=== PATIENT | male | born 1960 | race Caucasian/White ===

== ENCOUNTER 2025-03-06 15:19 | Emergency (ER) | payer MEDICAID, SELFPAY ==
[2025-03-06 15:20] VITALS: BMI 18.6
[2025-03-06 15:27] VITALS: BP 113/75; PULSE 91; RESP 18; TEMP 36.7; O2SAT 95
[2025-03-06] MEDS: LIDOCAINE HCL 1% 20 ML VIAL INFL (15:46)
[2025-03-06] MEDS: DIPHTH,PERTUSS(ACELL),TET VAC 0.5 ML SYR- ADULT IMi (15:46)
--- NOTE | 2025-03-06 15:58 | EDNOTE_ITS ---
ED Wound/Laceration-RME/HPI General Chief Complaint: Wound/Laceration Stated Complaint: LAC R) 4TH FINGER Time Seen by Provider: 03/06/25 15:24 Source: patient Arrival date/time: 03/06/25 15:19 64-year-old male with a history of hypertension, cancer, cecal volvulus, presents to the emergency room with a chief complaint of a laceration to his right hand fourth finger. Patient states he was washing dishes and got cut by glass. Mode of arrival: ambulatory Limitations: no limitations Related Data Home Medications ?Medication ?Instructions ?Recorded ?Confirmed hydrochlorothiazide 25 mg tablet 25 mg PO QDAY 0 04/14/20 hydrocodone 5 mg-acetaminophen 325 1 tab PO Q8H PRN Pa in 04/14/20 04/14/20 mg tablet ([place]) lisinopril 20 mg tablet 20 mg PO QDAY 04/14/2004/14 Previous Rx's ?Medication ?Instructions ?Recorded hydrocodone 5 mg-acetaminophen 325 1 tab PO Q6H PRN pa in4 #20 tabs 04/26/20 mg tablet ([place]) vancomycin 125 mg capsule 125 mg PO QID #30 caps 04/26 Allergies Allergy/AdvReac Type Severity Reaction Status Date / Time No Known Allergies Allergy Verified 03/06/25 15:22 Review of Systems Review of Systems Systems Reviewed: All systems reviewed, normal except as documented Constitutional Constitutional: Reports system reviewed and no additional complaints, except as documented, Denies fatigue, Denies fever(s), Denies headache(s) and Denies weakness Eyes Eyes: Reports system reviewed and no additional complaints, except as documented, Denies blurry vision and Denies change in vision ENT Ears, Nose, Mouth, and Throat: Reports system reviewed and no additional complaints, except as documented, Denies otalgia, Denies headache(s), Denies nasal congestion, Denies throat swelling and Denies vertigo Cardiovascular Cardiovascular: Reports system reviewed and no additional complaints, except as documented, Denies chest pain, Denies dyspnea and Denies dyspnea on exertion Respiratory Respiratory: Reports system reviewed and no additional complaints, except as documented, Denies chest congestion, Denies cough, Denies dyspnea, Denies dyspnea on exertion and Denies wheezing Gastrointestinal Gastrointestinal: Reports system reviewed and no additional complaints, except as documented, Denies abdominal pain, Denies cramping, Denies nausea and Denies vomiting Genitourinary Genitourinary: Reports system reviewed and no additional complaints, except as documented, Denies dysuria and Denies hematuria Musculoskeletal Musculoskeletal: Reports system reviewed and no additional complaints, except as documented and Denies back pain Integumentary/Breasts Skin/Breast: Reports system reviewed and no additional complaints, except as documented and Denies wounds Neurologic Neurologic: Reports system reviewed and no additional complaints, except as documented, Denies confusion, Denies headache(s), Denies lack of coordination, Denies vertigo and Denies weakness Psychiatric Psychiatric: Reports system reviewed and no additional complaints, except as documented, Denies anxiety, Denies confusion, Denies depression, Denies paranoia, Denies suicidal ideation and Denies tactile hallucinations Endocrine Endocrine: Reports system reviewed and no additional complaints, except as documented and Denies fatigue Hematologic/Lymphatic Hematologic/Lymphatic: Reports system reviewed and no additional complaints, except as documented and Denies lymphadenopathy Allergic/Immunologic Allergic/Immunologic: Reports system reviewed and no additional complaints, except as documented, Denies throat swelling, Denies urticaria and Denies wheezing ED Exam General Limitations: Present no limitations General appearance: Present alert and in no apparent distress Head Head exam: Present atraumatic Eye Eye exam: Present normal appearance, PERRL and EOMI ENT ENT exam: Present normal exam, normal oropharynx and mucous membranes moist Neck Neck exam: Present normal inspection, full ROM and trachea midline Chest Chest inspection: Present normal inspection and symmetric chest wall rise Respiratory Respiratory exam: Present normal lung sounds bilaterally Cardiovascular Cardiovascular exam: Present regular rate, normal rhythm and normal heart sounds Abdominal Exam Abdominal exam: Present soft and normal bowel sounds Extremities Exam Extremities exam: Present normal inspection and full ROM Expanded Upper Extremity Exam Shoulder exam: Present normal inspection Arm exam: Present normal inspection Elbow exam: Present normal inspection Forearm/Wrist exam: Present normal inspection Hand L/R front image: 2 1. laceration (2 cm laceration) Back Exam Back exam: Present normal inspection and full ROM Neurological Exam Neurological exam: Present alert, oriented X3 and CN II-XII intact Psychiatric Psychiatric exam: Present normal affect and normal mood Skin Skin exam: Present warm, dry, intact and normal color Course Quality Measures none Orders Category Date Time Status Set Up Suture Tray STAT Care 03/06/25 15:35 Active Wound Care NOW Care 03/06/25 15:35 Active Lidocaine 1% 20 ml [Xylocaine 1% 20 ML] Med 03/06/25 15:35 Discontinued 20 ml INFL X1 ONE TET,DIP/PERT AC (Adult)-Tdap [Boostrix Adult (Tdap) Med 03/06/25 15:35 Discontinued Vacc] 0.5 ml IMI .ONCE ONE Vital Signs Vital signs: Vital Signs Temperature 98.0 F 03/06/25 15:27 Pulse Rate 91 03/06/25 15:27 Respiratory Rate 18 03/06/25 15:27 Blood Pressure 113/75 03/06/25 15:27 Pulse Oximetry (%) 95 03/06/25 15:27 Oxygen Delivery Method Room Air 03/06/25 15:27 PROCEDURES: Laceration Laceration 1: Site: hand Side (If applicable): left Size (cm): 2 Description: linear and flap Depth: simple, single layer Local Anesthetic: lidocaine 1% Amount of anesthesia used (mL): 4 Pre-repair: wound explored and irrigated extensively Skin layer closed with: nylon Suture size (cm): 4-0 Number of sutures: 6 Technique: simple, interrupted Wound / Laceration MDM Narrative MDM Narrative:: 64-year-old male with a history of hypertension, cancer, cecal volvulus, presents to the emergency room with a chief complaint of a laceration to his right hand fourth finger. Patient states he was washing dishes and got cut by glass. Patient is hemodynamically stable and in no apparent distress The laceration occured 1 hour ago The mechanism of injury occurred while the patient was washing dishes and was cut by glass Sensation is intact. There is full ROM. There is no exposed tendons. No foreign bodies. Lidocaine 1% was used for anesthesia. The wound was irrigated extensively with normal saline. 6 sutures were placed. A dressing was placed. There were no complications. Patient was educated to keep the area clean and dry for 24 hours, then clean daily with soap and water. Patient was educated to return for any signs of infection including swelling pain redness pus or fever and to make an appointment with primary care provider in 48 hours. Patient was educated to follow up with primary or return to emergency room for suture removal in the next 7-10 days. Patient data External records reviewed:: [facility] previous records Clinical information provided by:: patient Social determinants that could affect healthcare access:: none Patient has the following chronic illnesses:: Hypertension How is presenting disease/condition affected by chronic disease/condition?: u neffected by Evaluation data The following diagnostics were reviewed and interpreted by me:: lab results and radiology exam(s) Lab and/or radiology exams considered but not ordered:: Labs and radiology exams considered and ordered Interpretation Summary: N/A Medications / Prescriptions Medications or Prescriptions considered but not ordered:: Medication given Medication administrations:: Medication Administration History Discontinued Medications Diphtheria/Tetanus/Acell Pertussis (Diphth,Pertuss(Acell),Tet Vac 0.5 Ml Syr- Adult) 0.5 ml IMi .ONCE ONE Stop: 03/06/25 15:36 Last Admin: 03/06/25 15:46 Dose: 0.5 ml Documented By: DILSHAD Lidocaine HCl (Lidocaine Hcl 1% 20 Ml Vial) 20 ml INFL X1 ONE Stop: 03/06/25 15:36 Last Admin: 03/06/25 15:46 Dose: 20 ml Documented By: DILSHAD Medication given Consultations Consultation(s) initiated? (list below): No Diagnosis Wound Differential Diagnosis: laceration, abscess and abrasion Most likely diagnosis given after review of the tests above:: Laceration Admission Indicated Admission indicated?: not indicated Admission Request Was there a request for admission?: No Disposition Plan Disposition Plan: Discharge Discharge Attestation Discharge Attestation: The patient and all family members were given an opportunity to ask questions and understood the discharge instructions. Discharge instructions specifically effects, indications for sooner follow up or return to the emergency department, and the expected course of current diagnosis. Patient condition: Stable Discharge Plan Plan Patient Disposition: HOME (Self Care) Discharge Disposition comment: Stable Prescriptions/Referrals Prescriptions/Med Rec: No Action lisinopril 20 mg tablet 20 mg PO QDAY hydrochlorothiazide 25 mg tablet 25 mg PO QDAY hydrocodone-acetaminophen [[place]] 5-325 mg tablet 1 tab PO Q8H MDD 4 PRN (Reason: Pain) vancomycin 125 mg capsule 125 mg PO QID Qty: 30 0RF hydrocodone-acetaminophen [[place]] 5-325 mg tablet 1 tab PO Q6H MDD 4 PRN (Reason: pain4) Qty: 20 0RF Problem List Clinical Impression: Laceration Patient/Caregiver Discharge Instructions Additional Instructions: Please follow-up with your primary care provider in the next 24 to 48 hours Please keep the area clean and dry for the next 24 hours after you clean it with soap and water You can return in 7 to 10 days for suture removal or follow-up with your primary care provider. For any evidence of worsening signs or symptoms return to the emergency room immediately Print Language: Amharic Stand Alone Forms: Shanel Award Info., Patient Portal Info Letter PA/TITLE DEPARTMENT MANAGER Supervising Physician PA/TITLE DEPARTMENT MANAGER Supervising Physician: Dr. Appiah
== END 2025-03-06 16:06 | disposition home or self-care (01) ==
LOC: SERX 16:03
PROVIDERS: Emergency Provider Family Medicine
DX: S61.214A Laceration without foreign body of right ring finger without damage to nail, initial encounter (principal); W25.XXXA Contact with sharp glass, initial encounter; Z23 Encounter for immunization
CPT/HCPCS: 12002; 90471; 90715; 99284; J3490

== ENCOUNTER 2025-05-13 11:35 | Emergency (ER) | payer MEDICARE, MEDICAID, SELFPAY ==
[2025-05-13 11:43] VITALS: BP 155/88; PULSE 73; RESP 16; TEMP 36.8; O2SAT 97; BMI 18.6
--- NOTE | 2025-05-13 11:52 | PD.EDRME ---
Rapid Medical Screening Exam E Arrival date/time: 05/13/25 11:35 64-year-old male with a history of hypertension was sent to the emergency room by his primary care provider for a new diagnosis of left ear carcinoma. Patient states he is here for resources as he is not sure who he has to see for his new diagnosis I have greeted and performed a focused initial assessment of this patient. A comprehensive ED assessment and evaluation of the patient, analysis of all test results, and completion of the medical decision making process will be conducted by additional ED providers. Chief Complaint: Ear Vital signs: Vital Signs Temperature 98.2 F 05/13/25 11:43 Pulse Rate 73 05/13/25 11:43 Respiratory Rate 16 05/13/25 11:43 Blood Pressure 155/88 H 05/13/25 11:43 Pulse Oximetry (%) 97 05/13/25 11:43 Oxygen Delivery Method Room Air 05/13/25 11:43 Vital signs reviewed by provider: Yes
[2025-05-13 12:27] LABS: Basophils # (Auto) 0.1 Thou/mm3 (0.0-0.2); Basophils % (Auto) 1 % (0-2.5); Eosinophils # (Auto) 0.1 Thou/mm3 (0.0-0.5); Eosinophils % (Auto) 1 % (0-10); Hematocrit 39.2 % (41.0-53.0); Hemoglobin 13.6 g/dL (13.5-16.0); Immature Granulocytes Auto 0.03 Thou/mm3 (0.00-0.00); Lymphocytes # (Auto) 1.5 Thou/mm3 (1.0-4.8); Lymphocytes % (Auto) 17 % (10-50); Mean Corpuscular HGB Conc 34.7 g/dl (31.0-37.0); Mean Corpuscular Hemoglobin 34.2 pg (25.0-35.0); Mean Corpuscular Volume 99 fL (80-100); Monocytes # (Auto) 1.1 Thou/mm3 (0.0-0.8); Monocytes % (Auto) 12 % (0-12); Neutrophils # (Auto) 5.8 Thou/mm3 (1.8-7.7); Neutrophils % (Auto) 68 % (37-80); Nucleated Red Blood Cell # 0.00 Thou/mm3 (0.00-0.00); Nucleated Red Blood Cell % 0 /100 WBC (0); Platelet Count 243 Thou/mm3 (140-440); RDW Standard Deviation 52.0 fL (35.1-43.9); Red Blood Count 3.98 Miln/mm3 (4.50-5.90); White Blood Count 8.5 Thou/mm3 (3.8-10.6)
[2025-05-13 12:46] LABS: Alanine Aminotransferase 24 U/L (10-49); Albumin, Serum 4.7 gm/dL (3.4-4.8); Albumin/Globulin Ratio 1.5 (1.2-2.2); Alkaline Phosphatase 75 U/L (46-116); Anion Gap 10 (7-16); Aspartate Amino Transferase 50 U/L (0-34); BUN/Creatinine Ratio 7 Ratio (12-20); Bilirubin,Total 0.4 mg/dL (0.3-1.2); Blood Urea Nitrogen 7 mg/dL (9-23); Calcium 9.8 mg/dL (8.3-10.6); Calcium (Corrected) 9.8 mg/dL (8.5-10.1); Carbon Dioxide 26.7 mMol/L (20.0-31.0); Chloride 98 mMol/L (98-107); Creatinine (Component) 1.0 mg/dL (0.6-1.3); Estimated Creatinine Clearance 61.4 mL/min (>60); Globulin 3.2 gm/dL (2.3-3.5); Glucose 95 mg/dL (74-106); Osmolality,Calculated 268 (275-295); Potassium 3.8 mMol/L (3.4-5.1); Sodium 135 mMol/L (136-145); Total Protein 7.9 gm/dL (5.7-8.2); eGFR > 60 See Note
[2025-05-13 12:54] VITALS: BP 163/94; PULSE 64; RESP 16; O2SAT 98
--- NOTE | 2025-05-13 12:58 | PC.NURSE ---
PT HERE WITH C/O OPEN/NO-HEALING WOUND TO LEFT EAR. SHOWS NURSE BIOPSY RESULTS SAYING WOUND IS CANCER. PT STATES IT WON'T HEAL AND I CAN'T GET IN TO SEE A DOCTOR.
[2025-05-13 13:35] VITALS: BP 140/94; PULSE 64; RESP 16; TEMP 36.7; O2SAT 98
--- NOTE | 2025-05-13 13:46 | EDNOTE_ITS ---
ED Ear RME/HPI General Chief complaint: Ear Stated complaint: PAIN/ULCER IN L) EAR Time Seen by Provider: 05/13/25 13:17 Arrival date/time: 05/13/25 11:35 Limitations: no limitations RME / HPI RME / HPI Narrative: 05/13/25 11:35 64-year-old male with a history of hypertension was sent to the emergency room by his primary care provider for a new diagnosis of left ear carcinoma. Patient states he is here for resources as he is not sure who he has to see for his new diagnosis I have greeted and performed a focused initial assessment of this patient. A comprehensive ED assessment and evaluation of the patient, analysis of all test results, and completion of the medical decision making process will be conducted by additional ED providers. DR. 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 States he was referred to the [facility] where he was evaluated today. States he has yet to see or consult with plastic surgeon. No other complaints reported. Related Data Home Medications ?Medication ?Instructions ?Recorded ?Confirmed hydrochlorothiazide 25 mg tablet 25 mg PO QDAY 0 04/14/20 hydrocodone 5 mg-acetaminophen 325 1 tab PO Q8H PRN Pa in 04/14/20 04/14/20 mg tablet ([place]) lisinopril 20 mg tablet 20 mg PO QDAY 04/14/2004/14 Previous Rx's ?Medication ?Instructions ?Recorded hydrocodone 5 mg-acetaminophen 325 1 tab PO Q6H PRN pa in4 #20 tabs 04/26/20 mg tablet ([place]) vancomycin 125 mg capsule 125 mg PO QID #30 caps 04/26 cephalexin 500 mg capsule 500 mg PO Q6H 7 days #28 cap s 05/13/25 Allergies Allergy/AdvReac Type Severity Reaction Status Date / Time No Known Allergies Allergy Verified 05/13/25 11:39 Review of Systems Review of Systems Systems Reviewed: All systems reviewed, normal except as documented Past Medical History Past Medical History NEUROLOGIC: Positive Neurological Disorders and Head Trauma CARDIAC: Positive Hypertension GASTROINTESTINAL: Positive Gastrointestinal Disorders and Hemorrhoids MUSCULOSKELETAL: Positive Musculoskeletal Disorders, Arthritis and Fractures ENT: Positive Head Trauma PSYCHO/SOCIAL: Positive Anxiety OTHER HISTORY: Positive Chemotherapy, Radiation Therapy, Chicken Pox and Cancer (SKIN/JAW LWFT SIDE FACE, LEFT EAR) Family History FAMILY HISTORY: Positive Family Psychiatric Problems, Family Cardiac Disorders and Family Surgery Surgical History SURGICAL: Positive Abdominal Surgery and Bowel Surgery Social History SMOKING STATUS: Current every day smoker SECOND HAND EXPOSURE: No SUBSTANCE USE: marijuana ED Exam General Limitations: Present no limitations General appearance: Present alert and in no apparent distress Head Head exam: Present atraumatic and normocephalic Eye Eye exam: Present normal appearance and EOMI ENT ENT exam: Present normal oropharynx, mucous membranes moist and other (1.5cm x 1cm basal cell carcinoma appearing ulceration ) Neck Neck exam: Present normal inspection, full ROM and trachea midline Chest Chest inspection: Present normal inspection and symmetric chest wall rise Respiratory Respiratory exam: Present normal lung sounds bilaterally Cardiovascular Cardiovascular exam: Present regular rate, normal rhythm and normal heart sounds Abdominal Exam Abdominal exam: Present soft and normal bowel sounds Extremities Exam Extremities exam: Present normal inspection and full ROM Neurological Exam Neurological exam: Present alert, oriented X3 and CN II-XII intact Psychiatric Psychiatric exam: Present normal affect and normal mood Skin Skin exam: Present warm, dry, intact and normal color Course Quality Measures none Orders Category Date Time Status CBC Stat Lab 05/13/25 12:01 Completed CMP [Comprehensive Metabolic Panel] Stat Lab 05/13/25 12:01 Completed Vital Signs Vital signs: Vital Signs Temperature 98.2 F 05/13/25 11:43 Pulse Rate 73 05/13/25 11:43 Respiratory Rate 16 05/13/25 11:43 Blood Pressure 155/88 H 05/13/25 11:43 Pulse Oximetry (%) 97 05/13/25 11:43 Oxygen Delivery Method Room Air 05/13/25 11:43 Pulse ox is 97% on room air which is adequate. Ear MDM Narrative MDM Narrative:: June Arshad am scribing for and in the presence of Dr. Williamson. 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 Discharge instructions specifically effects, indications for sooner follow up or return to the emergency department, and the expected course of current diagnosis. Patient condition: Stable Medical Decision Making Lab Data 05/13/25 12:01 05/13/25 12:01 Labs: Lab Results 05/13/25 Range/Units 12:01 WBC 8.5 (3.8-10.6) Thou/mm3 RBC 3.98 L (4.50-5.90) Miln/mm3 Hgb 13.6 (13.5-16.0) g/dL Hct 39.2 L (41.0-53.0) % MCV 99 (80-100) fL MCH 34.2 (25.0-35.0) pg MCHC 34.7 (31.0-37.0) g/dl RDW Std Deviation 52.0 H (35.1-43.9) fL Plt Count 243 (140-440) Thou/mm3 Neut % (Auto) 68 (37-80) % Lymph % (Auto) 17 (10-50) % [place] % (Auto) 12 (0-12) % Eos % (Auto) 1 (0-10) % Baso % (Auto) 1 (0-2.5) % Neut # (Auto) 5.8 (1.8-7.7) Thou/mm3 Lymph # (Auto) 1.5 (1.0-4.8) Thou/mm3 [place] # (Auto) 1.1 H (0.0-0.8) Thou/mm3 Eos # (Auto) 0.1 (0.0-0.5) Thou/mm3 Baso # (Auto) 0.1 (0.0-0.2) Thou/mm3 Immature Gran # (Auto) 0.03 H (0.00-0.00) Thou/mm3 Absolute Nucleated RBC 0.00 (0.00-0.00) Thou/mm3 Immature Gran % 0 (0-0) % Nucleated RBC % 0 (0) /100 WBC Sodium 135 L (136-145) mMol/L Potassium 3.8 (3.4-5.1) mMol/L Chloride 98 (98-107) mMol/L Carbon Dioxide 26.7 (20.0-31.0) mMol/L Anion Gap 10 (7-16) BUN 7 L (9-23) mg/dL Creatinine 1.0 (0.6-1.3) mg/dL Estim Creat Clear Calc 61.4 (>60) mL/min eGFR > 60 (60 - ) See Note BUN/Creatinine Ratio 7 L (12-20) Ratio Glucose 95 (74-106) mg/dL Calculated Osmolality 268 L (275-295) Calcium 9.8 (8.3-10.6) mg/dL Corrected Calcium 9.8 (8.5-10.1) mg/dL Total Bilirubin 0.4 (0.3-1.2) mg/dL AST 50 H (0-34) U/L ALT 24 (10-49) U/L Alkaline Phosphatase 75 (46-116) U/L Total Protein 7.9 (5.7-8.2) gm/dL Albumin 4.7 (3.4-4.8) gm/dL Globulin 3.2 (2.3-3.5) gm/dL Albumin/Globulin Ratio 1.5 (1.2-2.2) Discharge Plan Plan Patient Disposition: HOME (Self Care) Patient condition on transfer: Stable Prescriptions/Referrals Prescriptions/Med Rec: New cephalexin 500 mg capsule 500 mg PO Q6H 7 Days Qty: 28 0RF No Action lisinopril 20 mg tablet 20 mg PO QDAY hydrochlorothiazide 25 mg tablet 25 mg PO QDAY hydrocodone-acetaminophen [[place]] 5-325 mg tablet 1 tab PO Q8H MDD 4 PRN (Reason: Pain) vancomycin 125 mg capsule 125 mg PO QID Qty: 30 0RF hydrocodone-acetaminophen [Wagner] 5-325 mg tablet 1 tab PO Q6H MDD 4 PRN (Reason: pain4) Qty: 20 0RF Problem List Clinical Impression: 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 Take your medication as directed. Follow-up with your marketing administrative assistant as scheduled. Print Language: Spanish Stand Alone Forms: Shanel Award Info., Patient Portal Info Letter
== END 2025-05-13 13:35 | disposition home or self-care (01) ==
LOC: SERX 13:18
PROVIDERS: Nurse Practitioner Family; Emergency Provider Family Medicine
DX: C44.229 Squamous cell carcinoma of skin of left ear and external auricular canal (principal); I10 Essential (primary) hypertension
CPT/HCPCS: 36415; 80053; 85025; 99283